=== PATIENT | female | born 1950 | race Caucasian/White ===

== ENCOUNTER → 2018-01-01 | Outpatient (CLI) | payer OTHER ==
[~2018-01-01] MED LIST: VIBRA-TAB100 MG PO; VICODIN 500 MG-1 TAB PO
== END ==
LOC: RAD 10:57
DX: Z13.820 Encounter for screening for osteoporosis (principal); M81.0 Age-related osteoporosis without current pathological fracture; Z78.0 Asymptomatic menopausal state; Z90.710 Acquired absence of both cervix and uterus

== ENCOUNTER → 2023-03-31 | Outpatient (CLI) | payer OTHER | END | disposition home or self-care (01) | LOC: RESCLI 01:48 | PROVIDERS: ATTEND Internal Medicine | DX: K58.9 Irritable bowel syndrome, unspecified (principal); F32.9 Major depressive disorder, single episode, unspecified; I12.9 Hypertensive chronic kidney disease with stage 1 through stage 4 chronic kidney disease, or unspecified chronic kidney disease; N18.9 Chronic kidney disease, unspecified; J45.909 Unspecified asthma, uncomplicated; E03.9 Hypothyroidism, unspecified; M19.90 Unspecified osteoarthritis, unspecified site; F41.9 Anxiety disorder, unspecified; D68.51 Activated protein C resistance; G47.00 Insomnia, unspecified; M81.0 Age-related osteoporosis without current pathological fracture; Z79.82 Long term (current) use of aspirin; Z79.899 Other long term (current) drug therapy; Z88.8 Allergy status to other drugs, medicaments and biological substances; Z88.0 Allergy status to penicillin; Z98.890 Other specified postprocedural states ==

== ENCOUNTER → 2024-03-08 | Outpatient (CLI) | payer OTHER ==
[~2024-03-08] MED LIST changes: +DOBUTamine 250 ML IV ONE
== END | disposition home or self-care (01) ==
LOC: RESCLI 03:20
PROVIDERS: ATTEND Internal Medicine
DX: E03.9 Hypothyroidism, unspecified (principal); F32.9 Major depressive disorder, single episode, unspecified; D68.51 Activated protein C resistance; I12.9 Hypertensive chronic kidney disease with stage 1 through stage 4 chronic kidney disease, or unspecified chronic kidney disease; N18.9 Chronic kidney disease, unspecified; K58.9 Irritable bowel syndrome, unspecified; G47.00 Insomnia, unspecified; J30.9 Allergic rhinitis, unspecified; F41.9 Anxiety disorder, unspecified; Z98.890 Other specified postprocedural states; Z90.710 Acquired absence of both cervix and uterus; Z79.82 Long term (current) use of aspirin; Z79.899 Other long term (current) drug therapy; Z86.16 Personal history of COVID-19; Z88.0 Allergy status to penicillin